=== PATIENT | male | born 1950 | race Hispanic/Latino ===

== ENCOUNTER 2017-08-02 18:07 | Emergency (ER) | payer OTHER, MEDICARE ==
[~2017-08-02] VITALS: Ht 170.2 cm; Wt 88.5 kg
[2017-08-02] MEDS ORDERED: KETOROLAC TROMETHAMINE 60 MG/2 ML VIAL IM ONE (18:45)
--- NOTE | 2017-08-02 19:50 | Diagnostic Imaging Report ---
EXAMINATION: Head CT without contrast. HISTORY:Status post fall. COMPARISON:None. TECHNIQUE: Multidetector axial images were obtained from the foramen magnum to the vertex without contrast. The images were reconstructed using brain and bone algorithms. Thin section brain images were reformatted into coronal and sagittal planes. Intravenous contrast: None IMAGE QUALITY: Suboptimal evaluation due to significant motion artifacts FINDINGS: Skull/scalp: No abnormality. Parenchyma: Nonspecific supratentorial white matter few, scattered hypodensity are likely related to small vessel ischemic changes. Focal hypodensity in the inferior aspect of left lentiform nucleus represents age indeterminate lacunar infarct. Questionable focal cortical-based hypodensity in left occipital lobe (image 26, series 10) is only seen in one set of images may represent volume average artifact versus age indeterminate vascular insult. No acute hemorrhage or mass. Arteries: No density suggestive of thrombosis. Dural sinuses: No abnormal density suggestive of thrombosis. Ventricles: No hydrocephalus or displacement. Extra-axial spaces: No abnormal density. Brain volume: Normal for age. Craniocervical junction: No mass, Chiari malformation, or basilar invagination. Sella: No mass. Paranasal/mastoid sinuses: Mild mucosal thickening in right maxillary sinus IMPRESSION: Suboptimal evaluation due to significant motion artifacts and posterior aspect of the brain parenchyma is not well visualized. Despite the limitations, 1. Age indeterminate focal vascular insult vs artifact in left occipital lobe. 2. 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 3. Mild supratentorial white matter microvascular ischemic changes. Signed by: Dr. Debbie Gaitan M.D. on 08/02/2017 7:47 PM
--- NOTE | 2017-08-02 19:54 | Diagnostic Imaging Report ---
Frontal and lateral views of the chest. HISTORY: Fall COMPARISON: None available. DISCUSSION: Lungs: Low lung volumes result in bibasilar vascular crowding, accentuation of the pulmonary interstitial markings, central pulmonary vasculature, and the cardiac silhouette. Allowing for these limitations, the findings are as follows: No evidence of a consolidative pneumonia or pulmonary alveolar edema. Pleura: No pleural effusion or pneumothorax. Heart and mediastinum: The cardiomediastinal silhouette appears unremarkable. Bones: No acute osseous lesion. Vertical bridging syndesmophytes throughout the visualized spine. IMPRESSION: 1. No acute radiographic abnormality. 2. Findings which may reflect ankylosing spondylitis. Signed by: Dr. Orlin Kraus D.O., M.M.M. on 08/02/2017 7:50 PM
--- NOTE | 2017-08-02 19:57 | Diagnostic Imaging Report ---
History: Status post fall. Comparison studies: None Technique: Axial images were obtained through the cervical region.. Coronal and sagittal images reconstructed from the axial data.. Intravenous contrast: None Findings: Suboptimal evaluation due to motion artifacts particularly the lower cervical spine. Fractures: None. Soft tissue injuries: None. Atlantoaxial articulation: Intact. Alignment: Normal lordosis. No scoliosis. Cervicomedullary junction: No abnormalities. The foramen magnum is patent. Soft tissues: No abnormalities. Vertebrae: No fractures, infection or neoplasm. Degenerative changes: Multilevel bridging anterior vertebral osteophytes extends from C2 to C7, represents diffuse idiopathic skeletal hyperostosis (DISH). C2-C3: Posterior disc osteophyte complex without significant canal stenosis. C3-C4: Posterior disc osteophyte complex without canal stenosis. Mild right foraminal stenosis due to facet and uncovertebral arthrosis. C4-C5: Mild right facet arthrosis without significant foraminal stenosis. C5-C6: Posterior disc osteophyte complex without canal stenosis. Mild right foraminal stenosis due to facet and uncovertebral arthrosis. 1.5 mm grade 1 anterolisthesis.. IMPRESSION: 1. Suboptimal evaluation due to motion artifacts particularly in the lower cervical spine, despite the limitation no grossly displaced acute fracture. 2. Ligament, spinal cord and or vascular abnormalities cannot be excluded on the basis of this examination. 3. Cervical spondylosis as detailed above. Signed by: Dr. Debbie Gaitan M.D. on 08/02/2017 7:54 PM
[2017-08-02] MEDS ORDERED: KETOROLAC TROMETHAMINE 60 MG/2 ML VIAL ONE (21:49)
== END 2017-08-02 22:23 | disposition home or self-care (01) ==
LOC: ER 18:07
DX: M54.2 Cervicalgia (principal); G89.11 Acute pain due to trauma; W17.89XA Other fall from one level to another, initial encounter; Y92.008 Other place in unspecified non-institutional (private) residence as the place of occurrence of the external cause; I10 Essential (primary) hypertension
CPT/HCPCS: 70450; 71020; 72125; 99283; J1885